=== PATIENT | male | born 1950 | race Caucasian/White ===

== ENCOUNTER → 2016-06-08 | Outpatient (CLI) | payer OTHER, MEDICAID ==
--- NOTE | 2016-06-08 15:36 | REP ---
MAXILLOFACIAL CT WITHOUT CONTRAST: HISTORY: Chronic pansinusitis. COMPARISON: 10/14/2013 A right Alverto cell is present. The patient is status post partial right ethmoidectomy, left middle nasal turbinectomy, uncinectomy and partial septoplasty. Minimal mucosal thickening is present in the ethmoid and left maxillary sinuses. The remaining sinuses are clear. The right ostiomeatal unit is patent. The middle and inferior nasal turbinates are partially paradoxical. There is mild deviation of the nasal septum to the right superiorly and to the left inferiorly. The cribriform plate, medial sommer of the orbits and optic canals are intact. The carotid canals form a segment of the posterolateral sommer of the sphenoid sinus. IMPRESSION: 1. Postoperative change as described above. 2. Sinus mucosal thickening as described above. Signed by Thomas Enrique MD 06/08/2016 03:42 P
== END ==
LOC: M RAD 13:23
PROVIDERS: ATTEND Otolaryngology
DX: J32.4 Chronic pansinusitis (principal)

== ENCOUNTER → 2016-06-28 | Outpatient (REF) | payer OTHER, MEDICAID ==
[2016-06-28 18:27] LABS: MEAN CORPUSCULAR HEMOGLOBIN 31.9 pg (27.0-33.0); MEAN CORPUSCULAR HGB CONC 34.1 g/dl (32.0-36.5); MEAN CORPUSCULAR VOLUME 93.6 fl (80.0-96.0); RED CELL DISTRIBUTION WIDTH 12.2 % (11.5-14.5); WHITE BLOOD COUNT 4.6 K/mm3 (4.0-10.0)
[2016-06-28 18:32] LABS: ALBUMIN 3.9 GM/DL (3.2-5.2); ALBUMIN/GLOBULIN RATIO 1.39 (1.00-1.93); BILIRUBIN,TOTAL 0.6 MG/DL (0.2-1.0); CREATININE FOR GFR 1.31 MG/DL (0.70-1.30); GLOMERULAR FILTRATION RATE 58.8 (>49); POTASSIUM SERUM 4.2 MEQ/L (3.5-5.1); TOTAL PROTEIN 6.7 GM/DL (6.4-8.2)
== END ==
LOC: M SFHCLERA 09:48
PROVIDERS: ATTEND Family Medicine
DX: Z01.818 Encounter for other preprocedural examination (principal)

== ENCOUNTER → 2016-06-28 | Outpatient (CLI) | payer OTHER, MEDICAID ==
--- NOTE | 2016-06-28 18:21 | REP ---
Clinical: Preoperative assessment. Technique: PA and lateral. Comparison: 05/02/2012. Findings: Chronic scoliosis remains stable. Cardiac silhouette is normal. Lung ramriez demonstrate chronic stable changes without acute consolidation, effusion, or pneumothorax. Airway appears patent and midline. Degenerative changes to the right shoulder. Impression: Chronic stable changes. No acute cardiopulmonary process. Signed by Sylvain Perez MD 06/28/2016 06:13 P
== END ==
LOC: M LRY 09:52
PROVIDERS: ATTEND Family Medicine
DX: Z01.818 Encounter for other preprocedural examination (principal)

== ENCOUNTER → 2016-11-28 | Outpatient (REF) | payer OTHER, MEDICAID ==
[2016-11-28 18:31] LABS: ANION GAP 5 MEQ/L (8-16); BLOOD UREA NITROGEN 14 MG/DL (7-18); CALCIUM LEVEL 8.6 MG/DL (8.8-10.2); CARBON DIOXIDE LEVEL 31 MEQ/L (21-32); CHLORIDE LEVEL 105 MEQ/L (98-107); CHOLESTEROL LEVEL 209 MG/DL (<200); GLOMERULAR FILTRATION RATE > 60.0 (>49); GLUCOSE, FASTING 101 MG/DL (80-110); SODIUM LEVEL 141 MEQ/L (136-145); TRIGLYCERIDES LEVEL 99 MG/DL (<150)
[2016-11-28 18:43] LABS: MEAN CORPUSCULAR HEMOGLOBIN 32.6 pg (27.0-33.0); MEAN CORPUSCULAR HGB CONC 33.6 g/dl (32.0-36.5); RED CELL DISTRIBUTION WIDTH 12.4 % (11.5-14.5); WHITE BLOOD COUNT 4.6 K/mm3 (4.0-10.0)
== END ==
LOC: M SFHCLERA 10:40
PROVIDERS: ATTEND Physician Assistant
DX: Z00.00 Encounter for general adult medical examination without abnormal findings (principal); E78.2 Mixed hyperlipidemia

== ENCOUNTER → 2016-12-21 | Outpatient (REF) | payer OTHER, MEDICAID | LOC: M LAB REF 14:34 | PROVIDERS: ATTEND Physician Assistant | DX: L30.9 Dermatitis, unspecified (principal) ==

== ENCOUNTER 2017-03-29 09:10 | Day surgery (SDC) | payer OTHER ==
[~2017-03-29] VITALS: Ht 188 cm; Wt 104.4 kg
[~2017-03-29 09:10] MED LIST: FISH100049 PO; IBUP-1114 PO
[2017-03-29] MEDS ORDERED: LR 1,000 ML IV ONE ×2 (09:30→12:15)
[2017-03-29] MEDS ORDERED: SCOPOLAMINE 1.5 MG TRANSDERMAL As Ordered ONE (10:15)
[2017-03-29] MEDS ORDERED: ONDANSETRON 4MG/2ML VIAL (J2405) As Ordered ONE (10:47)
[2017-03-29] MEDS ORDERED: LIDOCAINE 2% INJ 100 MG/5 ML SDV (FOR ANES.) As Ordered ONE (10:47)
[2017-03-29] MEDS ORDERED: ROCURONIUM BROMIDE 50 MG/5 ML VIAL As Ordered ONE (10:47)
[2017-03-29] MEDS ORDERED: dexameTHASONE 4 MG/ML 1ML VIAL (J1100) As Ordered ONE (10:47)
[2017-03-29] MEDS ORDERED: PROPOFOL 200 MG/20 ML VIAL As Ordered ONE (10:47)
[2017-03-29] MEDS ORDERED: fentaNYL 250 MCG/5 ML INJECTION (J3010) As Ordered ONE (10:48)
[2017-03-29] MEDS ORDERED: MIDAZOLAM INJ 2 MG/2 ML VIAL (J2250) As Ordered ONE (10:48)
[2017-03-29] MEDS ORDERED: LIDOCAINE W/EPINEPHRINE 1% 20ML VIAL As Ordered ONE (11:26)
[2017-03-29] MEDS ORDERED: EPINEPHrine 1MG/ML INJ 30ML MD-VIAL As Ordered ONE (11:26)
[2017-03-29] MEDS ORDERED: METHYLENE BLUE 0.5% (5MG/ML) 10 ML AMP (PROVAYBLUE)(Q9968 PER 1MG) As Ordered ONE (11:27)
[2017-03-29] MEDS ORDERED: ePHEDrine SULFATE 25 MG/5 ML(5MG/ML) SYRINGE As Ordered ONE (11:48)
[2017-03-29] MEDS ORDERED: GLYCOPYRROLATE INJ 0.2 MG/ML 2 ML VIAL As Ordered ONE (11:52)
[2017-03-29] MEDS ORDERED: NEOSTIGMINE 10 MG/10 ML VIAL (J2710) As Ordered ONE (11:52)
[2017-03-29] MEDS ORDERED: ACETAMINOPH W/CODEINE #3 TAB UD PO PRN (12:15)
[2017-03-29] MEDS ORDERED: ONDANSETRON 4MG/2ML VIAL (J2405) IV PRN (13:00)
[2017-03-29] MEDS ORDERED: METOCLOPRAMIDE INJ 10MG/2ML VIAL (J2765) IV PRN (13:00)
[2017-03-29] MEDS ORDERED: LR 1,000 ML IV SCH (13:00)
[2017-03-29] MEDS ORDERED: PERCOCET 5MG/325MG TAB PO PRN (13:00)
[2017-03-29] MEDS ORDERED: HYDROmorphone HCL 1 MG/ML SYRINGE (J1170) IV PRN (13:00)
[2017-03-29 13:36] VITALS: BP 147/96
--- NOTE | 2017-03-29 14:52 | RO ---
DATE OF PROCEDURE: 03/29/2017 PREPROCEDURE DIAGNOSIS: Chronic left maxillary sinusitis. POSTPROCEDURE DIAGNOSIS: Chronic left maxillary sinusitis. PROCEDURE: Left turbinectomy, left enterostomy. SURGEON: Didier Zuniga MD [employer]AIN[employer] SPECIALIST: ANESTHESIA: General. DESCRIPTION OF PROCEDURE: Under general anesthesia with the patient intubated, the patient was prepped and draped in the usual manner. I used pledgets of adrenaline 1:100,000. I infiltrated with Lidocaine and 0.5% Marcaine. The anterior aspect of the left middle turbinate was hypertrophic obstructing the osteomeatal complex area and so I trimmed it with a microdebrider and Thru-Cut forceps. I then opened the maxillary sinus better. Less than 5 mL of estimated blood loss. The patient tolerated the procedure well and was extubated and transferred to the recovery room in stable condition.
== END 2017-03-29 13:46 | disposition home or self-care (01) ==
LOC: M SDC 09:10
PROVIDERS: ATTEND Otolaryngology
DX: J01.01 Acute recurrent maxillary sinusitis (principal); I51.9 Heart disease, unspecified; Z85.46 Personal history of malignant neoplasm of prostate; M19.90 Unspecified osteoarthritis, unspecified site; L40.9 Psoriasis, unspecified; E78.5 Hyperlipidemia, unspecified; R31.9 Hematuria, unspecified; N32.9 Bladder disorder, unspecified; Z92.3 Personal history of irradiation; Z87.891 Personal history of nicotine dependence; Z79.899 Other long term (current) drug therapy

== ENCOUNTER → 2017-04-05 | Outpatient (REF) | payer OTHER, MEDICAID | LOC: M SFHCLERA 14:07 | PROVIDERS: ATTEND Urology | DX: Z85.46 Personal history of malignant neoplasm of prostate (principal) ==

== ENCOUNTER → 2017-04-13 | Outpatient (REF) | payer OTHER | LOC: M SMT 16:53 | DX: Z85.46 Personal history of malignant neoplasm of prostate (principal) | CPT/HCPCS: 81001 ==

== ENCOUNTER → 2018-02-21 | Outpatient (REF) | payer OTHER | LOC: M SFHCLERA 10:20 | DX: D04.39 Carcinoma in situ of skin of other parts of face (principal) | CPT/HCPCS: 88305 ==

== ENCOUNTER → 2018-03-28 | Outpatient (REF) | payer MEDICARE, MEDICAID ==
[2018-03-28 17:26] LABS: CHOLESTEROL LEVEL 203 MG/DL (<200); CHOLESTEROL RISK RATIO 3.561 (<5); HDL CHOLESTEROL 57 MG/DL (>40); LDL CHOLESTEROL 132 MG/DL (<100); NON-HDL-C 146 MG/DL; PROSTATIC SPECIFIC AG MONITOR 0.1 NG/ML (< 4.0); TRIGLYCERIDES LEVEL 68 MG/DL (<150)
[2018-03-28 19:00] LABS: ESTIMATED AVERAGE GLUCOSE 120 MG/DL (60-110); HEMOGLOBIN A1c 5.8 %
== END ==
LOC: M SFHCLERA 12:21
DX: E66.9 Obesity, unspecified (principal); Z68.30 Body mass index [BMI] 30.0-30.9, adult; E78.2 Mixed hyperlipidemia; Z85.46 Personal history of malignant neoplasm of prostate
CPT/HCPCS: 83036

== ENCOUNTER 2018-05-18 07:40 | Day surgery (SDC) | payer MEDICARE ==
[~2018-05-18] VITALS: Ht 185.4 cm; Wt 107.0 kg
[~2018-05-18 07:40] MED LIST changes: +LIDOCAINE 2% INJ 100 MG/5 ML SDV (FOR ANES.) As Ordered ONE; +PROPOFOL 200 MG/20 ML VIAL As Ordered ONE
[2018-05-18] MEDS ORDERED: NS 1,000 ML IV ONE (08:00)
[2018-05-18] MEDS ORDERED: PROPOFOL 200 MG/20 ML VIAL As Ordered ONE (08:49)
--- NOTE | 2018-05-18 09:02 | ROOR ---
Patient Name: Arvind Whiteside Procedure Date: 05/18/2018 8:26 AM Date of : 1950 Age: 67 Room: [facility] Gender: Male Note Status: Finalized Procedure: Colonoscopy Indications: High risk colon cancer surveillance: Personal history of colonic polyps Providers: Robinson BRITO MD Referring MD: VLADISLAV Burden Requesting Provider: Medicines: Monitored Anesthesia Care Complications: No immediate complications. Procedure: Pre-Anesthesia Assessment: - The heart rate, respiratory rate, oxygen saturations, blood pressure, adequacy of pulmonary ventilation, and response to care were monitored throughout the procedure. The Colonoscope was introduced through the anus and advanced to the cecum, identified by appendiceal orifice and ileocecal valve. The colonoscopy was performed without difficulty. The patient tolerated the procedure well. The quality of the bowel preparation was good. Findings: The perianal and digital rectal examinations were normal. Localized mild mucosal changes characterized by altered vascularity were found at the anus and in the distal rectum. Mild sigmoid diverticulosis and small internal hemorrhoids. The exam was otherwise without abnormality on direct and retroflexion views. 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 - Mild sigmoid diverticulosis and small internal hemorrhoids. - The examination was otherwise normal on direct and retroflexion views. - No specimens collected. Recommendation: - Repeat colonoscopy in 10 years for screening purposes. Robinson Brito MD Robinson BRITO MD 05/18/2018 9:02:08 AM This report has been signed electronically. Number of Addenda: 0 Note Initiated On: 05/18/2018 8:26 AM Estimated Blood Loss: Estimated blood loss: none.
[2018-05-18 09:24] VITALS: BP 120/66
== END 2018-05-18 09:26 | disposition home or self-care (01) ==
LOC: M OPP 07:40
PROVIDERS: ATTEND Internal Medicine Gastroenterology
DX: Z12.11 Encounter for screening for malignant neoplasm of colon (principal); Z86.010 Personal history of colon polyps; K62.7 Radiation proctitis; K57.30 Diverticulosis of large intestine without perforation or abscess without bleeding; K64.8 Other hemorrhoids

== ENCOUNTER → 2018-05-24 | Outpatient (REF) | payer MEDICARE ==
[~2018-05-24] MED LIST changes: -LIDOCAINE 2% INJ 100 MG/5 ML SDV (FOR ANES.) As Ordered ONE; -PROPOFOL 200 MG/20 ML VIAL As Ordered ONE
[2018-05-24 18:10] LABS: BLOOD UREA NITROGEN 19 MG/DL (7-18); CALCIUM LEVEL 8.8 MG/DL (8.8-10.2); CARBON DIOXIDE LEVEL 29 MEQ/L (21-32); CHLORIDE LEVEL 104 MEQ/L (98-107); CREATININE FOR GFR 1.03 MG/DL (0.70-1.30); GLOMERULAR FILTRATION RATE > 60.0 (>49); GLUCOSE, FASTING 94 MG/DL (70-100); POTASSIUM SERUM 4.8 MEQ/L (3.5-5.1); SODIUM LEVEL 139 MEQ/L (136-145)
== END ==
LOC: M SFHCLERA 12:29
PROVIDERS: ATTEND Family Medicine
DX: R10.32 Left lower quadrant pain (principal)

== ENCOUNTER → 2018-05-30 | Outpatient (CLI) | payer MEDICAID, MEDICARE ==
[~2018-05-30] MED LIST changes: +GASTROGRAFIN SOLUTION 30ML (Q9963) As Ordered ONE; +ISOVUE-370 76% 100ML VIAL (Q9967) As Ordered ONE
--- NOTE | 2018-05-30 13:52 | REP ---
CT of the pelvis with IV and oral contrast: The patient has a history of left inguinal repair and 2013 with mesh placement. He now complains of worsening left inguinal pain radiating to the left testicle and to the back on the left for 3-6 months, worse with sitting. Additionally, the patient has a history of prostate carcinoma and prostatectomy. Comparison is a CT of the abdomen and pelvis dated 08/12/2013. There are surgical clips in the left inguinal area, unchanged. The surgical mesh is not visible by CT. There is no evidence of recurrent left inguinal hernia. There is no right inguinal hernia. There are occasional normal size inguinal nodes bilaterally. There are no masses or fluid collections in the inguinal areas. The appendix and terminal ileum are unremarkable. There is no adenopathy or ascites. The bladder wall is diffusely mildly thickened. The bladder is otherwise unremarkable. The pelvic bowel loops are unremarkable. Impression: No recurrent hernia. No inguinal mass, fluid collection or adenopathy. Surgical clips are identified in the left inguinal area. The surgical mesh is not visible by CT. Diffuse mild bladder wall thickening, nonspecific, cystitis versus detrusor hypertrophy. Otherwise, negative CT of the pelvis. Electronically Signed by Earnest Richard MD 05/30/2018 01:44 P
== END ==
LOC: M RAD 10:38
PROVIDERS: ATTEND Family Medicine
DX: R93.41 Abnormal radiologic findings on diagnostic imaging of renal pelvis, ureter, or bladder (principal); Z90.79 Acquired absence of other genital organ(s); Z85.46 Personal history of malignant neoplasm of prostate
CPT/HCPCS: 72193; Q9963; Q9967

== ENCOUNTER → 2018-08-23 | Outpatient (REF) | payer MEDICARE, MEDICAID ==
[~2018-08-23] MED LIST changes: -GASTROGRAFIN SOLUTION 30ML (Q9963) As Ordered ONE; -ISOVUE-370 76% 100ML VIAL (Q9967) As Ordered ONE
== END ==
LOC: M SFHCPLAZ 17:35
PROVIDERS: ATTEND Dermatology
DX: L57.0 Actinic keratosis (principal); L57.8 Other skin changes due to chronic exposure to nonionizing radiation; D36.10 Benign neoplasm of peripheral nerves and autonomic nervous system, unspecified

== ENCOUNTER → 2018-10-16 | Outpatient (REF) | payer MEDICARE | LOC: M LABSMT 13:28 | PROVIDERS: ATTEND Urology | DX: Z85.46 Personal history of malignant neoplasm of prostate (principal) ==

== ENCOUNTER → 2019-01-24 | Outpatient (REF) | payer MEDICARE | LOC: M LABSMT 16:05 | PROVIDERS: ATTEND Urology | DX: Z85.46 Personal history of malignant neoplasm of prostate (principal) ==

== ENCOUNTER → 2019-04-23 | Outpatient (REF) | payer MEDICARE | LOC: M SFHCLERA 14:39 | PROVIDERS: ATTEND Urology | DX: Z85.46 Personal history of malignant neoplasm of prostate (principal) ==

== ENCOUNTER → 2019-08-05 | Outpatient (REF) | payer MEDICARE | LOC: M SFHCLERA 13:25 | PROVIDERS: ATTEND Urology | DX: C61 Malignant neoplasm of prostate (principal) ==

== ENCOUNTER → 2019-10-25 | Outpatient (REF) | payer MEDICARE | LOC: M SFHCLERA 14:48 | PROVIDERS: ATTEND Urology | DX: R97.21 Rising PSA following treatment for malignant neoplasm of prostate (principal) ==

== ENCOUNTER → 2020-02-01 | Outpatient (CLI) | payer MEDICARE | LOC: M WUC 14:38 | PROVIDERS: ATTEND Urology | DX: R97.21 Rising PSA following treatment for malignant neoplasm of prostate (principal); C61 Malignant neoplasm of prostate ==

== ENCOUNTER → 2020-04-27 | Outpatient (CLI) | payer MEDICARE | LOC: M WUC 15:37 | PROVIDERS: ATTEND Urology | DX: Z85.46 Personal history of malignant neoplasm of prostate (principal) ==

== ENCOUNTER → 2020-07-28 | Outpatient (CLI) | payer MEDICARE ==
[2020-07-28 16:48] LABS: BASO % 0.5 % (0.0-1.0); EOS # 0.1 10^3/uL (0.0-0.5); EOS % 0.9 % (0.0-3.0); HEMOGLOBIN 13.3 g/dl (13.5-17.5); LYMPH # 1.1 10^3/uL (1.5-5.0); LYMPH % 19.9 % (24.0-44.0); MEAN CORPUSCULAR HEMOGLOBIN 30.7 pg (27.0-33.0); MEAN CORPUSCULAR HGB CONC 33.3 g/dl (32.0-36.5); MEAN CORPUSCULAR VOLUME 92.4 fl (80.0-96.0); MONO # 0.6 10^3/uL (0.0-0.8); MONO % 10.9 % (2.0-8.0); NEUTROPHILS # 3.8 10^3/uL (1.5-8.5); NEUTROPHILS % 67.4 % (36.0-66.0); PLATELET COUNT, AUTOMATED 218 10^3/uL (150-450); RED BLOOD COUNT 4.33 10^6/uL (4.30-6.10); WHITE BLOOD COUNT 5.6 10^3/uL (4.0-10.0)
[2020-07-28 17:22] LABS: ALBUMIN 3.8 GM/DL (3.2-5.2); ALT/SGPT 40 U/L (12-78); BILIRUBIN,TOTAL 0.6 MG/DL (0.2-1.0); BLOOD UREA NITROGEN 17 MG/DL (7-18); CALCIUM LEVEL 9.1 MG/DL (8.8-10.2); CARBON DIOXIDE LEVEL 29 MEQ/L (21-32); CHLORIDE LEVEL 103 MEQ/L (98-107); CREATININE FOR GFR 0.99 MG/DL (0.70-1.30); GLOMERULAR FILTRATION RATE > 60.0 (>49); GLUCOSE, FASTING 150 MG/DL (70-100); LIPASE 92 U/L (73-393); POTASSIUM SERUM 3.9 MEQ/L (3.5-5.1); SODIUM LEVEL 136 MEQ/L (136-145); TOTAL PROTEIN 6.8 GM/DL (6.4-8.2)
[2020-07-28 18:07] LABS: ERYTHROCYTE SEDIMENTATION RATE 6 mm/hr (0-20)
== END ==
LOC: M WUC 14:52
PROVIDERS: ATTEND Family Medicine
DX: R10.32 Left lower quadrant pain (principal); Z79.899 Other long term (current) drug therapy

== ENCOUNTER → 2020-11-03 | Outpatient (CLI) | payer MEDICARE | LOC: M WUC 14:35 | PROVIDERS: ATTEND Urology | DX: Z85.46 Personal history of malignant neoplasm of prostate (principal) ==

== ENCOUNTER → 2021-04-30 | Outpatient (REF) | payer MEDICARE | LOC: M WUC 15:29 | PROVIDERS: ATTEND Urology | DX: Z85.46 Personal history of malignant neoplasm of prostate (principal) ==

== ENCOUNTER → 2021-08-02 | Outpatient (CLI) | payer MEDICARE | LOC: M WUC 15:24 | PROVIDERS: ATTEND Urology | DX: Z85.46 Personal history of malignant neoplasm of prostate (principal) ==

== ENCOUNTER → 2021-11-01 | Outpatient (CLI) | payer MEDICARE | LOC: M WUC 15:21 | PROVIDERS: ATTEND Urology | DX: Z85.46 Personal history of malignant neoplasm of prostate (principal); R97.8 Other abnormal tumor markers ==

== ENCOUNTER → 2022-01-28 | Outpatient (CLI) | payer MEDICARE | LOC: M WUC 15:05 | PROVIDERS: ATTEND Urology | DX: C61 Malignant neoplasm of prostate (principal) ==

== ENCOUNTER → 2022-02-28 | Outpatient (CLI) | payer MEDICARE ==
[~2022-02-28] MED LIST changes: +ACET32TAB PO; +CEPH500C PO; +HYDR-3713 PO
[2022-02-28 15:50] LABS: HEMATOCRIT 44.3 % (42.0-52.0); HEMOGLOBIN 14.6 g/dl (13.5-17.5); MEAN CORPUSCULAR HEMOGLOBIN 30.8 pg (27.0-33.0); MEAN CORPUSCULAR VOLUME 93.5 fl (80.0-96.0); PLATELET COUNT, AUTOMATED 194 10^3/uL (150-450); RED BLOOD COUNT 4.74 10^6/uL (4.30-6.10); WHITE BLOOD COUNT 6.1 10^3/uL (4.0-10.0)
[2022-02-28 16:02] LABS: INR 0.99; PROTHROMBIN TIME 13.3 SECONDS (12.5-14.5)
[2022-02-28 16:13] LABS: ALKALINE PHOSPHATASE 59 U/L (45-117); ALT/SGPT 33 U/L (12-78); AST/SGOT 22 U/L (7-37); BILIRUBIN,TOTAL 0.7 MG/DL (0.2-1.0); BLOOD UREA NITROGEN 20 MG/DL (7-18); CALCIUM LEVEL 9.1 MG/DL (8.8-10.2); CARBON DIOXIDE LEVEL 28 MEQ/L (21-32); CHLORIDE LEVEL 104 MEQ/L (98-107); CREATININE FOR GFR 0.96 MG/DL (0.70-1.30); GLOMERULAR FILTRATION RATE > 60.0 (>49); GLUCOSE, FASTING 92 MG/DL (70-100); POTASSIUM SERUM 4.5 MEQ/L (3.5-5.1); SODIUM LEVEL 138 MEQ/L (136-145); TOTAL PROTEIN 7.1 GM/DL (6.4-8.2)
== END ==
LOC: M PLAIMG 11:49
PROVIDERS: ATTEND Urology
DX: N52.31 Erectile dysfunction following radical prostatectomy (principal)

== ENCOUNTER → 2022-03-19 | Outpatient (CLI) | payer MEDICARE ==
[~2022-03-19] MED LIST changes: -CEPH500C PO; -HYDR-3713 PO
[2022-03-19 15:55] LABS: APPEARANCE, URINE MANUAL CLEAR (CLEAR); COLOR, URINE MANUAL YELLOW (YELLOW)
[2022-03-19 15:56] LABS: PH,URINE MAN 6.5 UNITS (5.0 - 7.0)
[2022-03-19 16:01] LABS: BILIRUBIN, URINE MANUAL NEGATIVE (NEGATIVE); BLOOD URINE MANUAL NEGATIVE (NEGATIVE); GLUCOSE, URINE (UA) MANUAL NEGATIVE (NEGATIVE); KETONE, URINE MANUAL NEGATIVE (NEGATIVE); LEUKOCYTE ESTERASE, URINE MAN NEGATIVE (NEGATIVE); NITRITE, URINE MANUAL NEGATIVE (NEGATIVE); PROTEIN, URINE MANUAL NEGATIVE (NEGATIVE); UROBILINOGEN, URINE MANUAL NORMAL (NORMAL)
== END ==
LOC: M LAB 15:33
PROVIDERS: ATTEND Urology
DX: N52.31 Erectile dysfunction following radical prostatectomy (principal); Z79.899 Other long term (current) drug therapy

== ENCOUNTER → 2022-03-23 | Outpatient (CLI) | payer MEDICARE | LOC: M LABSMTC 10:50 | PROVIDERS: ATTEND Anesthesiology | DX: Z01.812 Encounter for preprocedural laboratory examination (principal); Z11.52 Encounter for screening for COVID-19 ==

== ENCOUNTER 2022-03-28 06:21 | Day surgery (SDC) | payer MEDICARE ==
[~2022-03-28] VITALS: Ht 188 cm; Wt 111.1 kg
[~2022-03-28 06:21] MED LIST changes: +GENTAMICIN 100 MG in IV 1 EA IV ONE
[2022-03-28] MEDS ORDERED: LR 1,000 ML IV SCH ×2 (06:45→10:15)
[2022-03-28] MEDS ORDERED: fentaNYL 100 MCG/2 ML INJECTION As Ordered ONE ×2 (07:16→08:28)
[2022-03-28] MEDS ORDERED: MIDAZOLAM INJ 2MG/2ML VIAL (J2250 PER 1MG) As Ordered ONE (07:16)
[2022-03-28] MEDS ORDERED: propofoL 200 MG/20 ML VIAL As Ordered ONE (07:16)
[2022-03-28] MEDS ORDERED: ceFAZolin 1GM VIAL As Ordered ONE (07:16)
[2022-03-28] MEDS ORDERED: LIDOCAINE 2% 100MG/5ML SDV (FOR ANES.) As Ordered ONE (07:16)
[2022-03-28] MEDS ORDERED: VANCOMYCIN HCL 750 MG, VIAL MATE ADAPTER 1 EACH in D5W 250 ML IV ONE ×2 (07:30→08:30)
[2022-03-28] MEDS ORDERED: KETOROLAC 60MG 2ML VIAL As Ordered ONE (08:07)
[2022-03-28] MEDS ORDERED: ONDANSETRON 4MG 2ML VIAL As Ordered ONE (08:07)
[2022-03-28] MEDS ORDERED: ACETAMINOPHEN 1000MG 100ML IV BAG As Ordered ONE (08:07)
[2022-03-28] MEDS ORDERED: ESMOLOL INJ 100MG/10ML VIAL As Ordered ONE (09:03)
[2022-03-28] MEDS ORDERED: LABETALOL 100MG/20ML VIAL As Ordered ONE (09:03)
[2022-03-28] MEDS ORDERED: fentaNYL 100 MCG/2 ML INJECTION IV PRN (10:15)
[2022-03-28] MEDS ORDERED: oxyCODONE 5MG TAB PO PRN (10:15)
[2022-03-28] MEDS ORDERED: ONDANSETRON 4MG 2ML VIAL IV PRN (10:15)
[2022-03-28] MEDS ORDERED: HYDROMORPHONE HCL 0.5 MG/ 0.5 ML SYRINGE (J1170 PER 1) IV PRN (10:15)
[2022-03-28] MEDS ORDERED: CEPH500C PO (10:27)
[2022-03-28] MEDS ORDERED: HYDR-3713 PO (10:27)
[2022-03-28 11:04] VITALS: BP 118/69
== END 2022-03-28 12:23 | disposition home or self-care (01) ==
LOC: M SDC 06:21
PROVIDERS: ATTEND Urology
DX: N52.9 Male erectile dysfunction, unspecified (principal); Z85.46 Personal history of malignant neoplasm of prostate; Z92.3 Personal history of irradiation; Z87.891 Personal history of nicotine dependence; F12.10 Cannabis abuse, uncomplicated; J45.909 Unspecified asthma, uncomplicated; Z79.899 Other long term (current) drug therapy; F41.9 Anxiety disorder, unspecified; E78.5 Hyperlipidemia, unspecified
CPT/HCPCS: 54405; C1813; J0131; J0690; J1100; J1580; J1885; J2250; J2405; J3010; J3370

== ENCOUNTER → 2022-05-06 | Outpatient (REF) | payer MEDICARE ==
[~2022-05-06] MED LIST changes: +CEPH500C PO; -GENTAMICIN 100 MG in IV 1 EA IV ONE; +HYDR-3713 PO
== END ==
LOC: M LABWUC 16:14
PROVIDERS: ATTEND Urology
DX: C61 Malignant neoplasm of prostate (principal)

== ENCOUNTER → 2022-10-17 | Outpatient (CLI) | payer MEDICARE | LOC: M LAB 14:49 | PROVIDERS: ATTEND Urology | DX: Z85.46 Personal history of malignant neoplasm of prostate (principal) ==

== ENCOUNTER → 2023-04-24 | Outpatient (REF) | payer MEDICARE | LOC: M LABWUC 16:06 | PROVIDERS: ATTEND Urology | DX: Z85.46 Personal history of malignant neoplasm of prostate (principal) ==

== ENCOUNTER → 2023-10-24 | Outpatient (REF) | payer MEDICARE, MEDICAID | LOC: M LAB REF 20:25 | PROVIDERS: ATTEND Urology | DX: C61 Malignant neoplasm of prostate (principal) ==

== ENCOUNTER → 2023-11-10 | Outpatient (REF) | payer MEDICARE, MEDICAID ==
[2023-11-10 18:28] LABS: APPEARANCE, URINE CLEAR (CLEAR); BACTERIA, URINE AUTO NEGATIVE (NEGATIVE); BILIRUBIN, URINE AUTO NEGATIVE (NEGATIVE); BLOOD, URINE BLOOD NEGATIVE (NEGATIVE); COLOR, URINE YELLOW (YELLOW); GLUCOSE, URINE (UA) AUTO NEGATIVE (NEGATIVE); KETONE, URINE AUTO NEGATIVE (NEGATIVE); LEUKOCYTE ESTERASE, URINE AUTO NEGATIVE (NEGATIVE); NITRITE, URINE AUTO NEGATIVE (NEGATIVE); PROTEIN, URINE AUTO NEGATIVE (NEGATIVE); RBC, URINE AUTO 0 /HPF (0-3); SPECIFIC GRAVITY URINE AUTO 1.009 (1.002-1.035); SQUAMOUS EPITHELIAL CELL UR AU 0 /HPF (0-6); UROBILINOGEN, URINE AUTO 0.2 mg/dL (0.0-2.0); WBC, URINE AUTO 0 /HPF (0-3)
== END ==
LOC: M SMT 17:02
PROVIDERS: ATTEND Urology
DX: Z85.46 Personal history of malignant neoplasm of prostate (principal)

== ENCOUNTER → 2024-04-13 | Outpatient (CLI) | payer MEDICARE, MEDICAID | LOC: M LAB 14:45 | PROVIDERS: ATTEND Urology | DX: R31.0 Gross hematuria (principal) ==

== ENCOUNTER → 2024-10-30 | Outpatient (CLI) | payer MEDICARE, MEDICAID ==
[2024-10-30 15:02] LABS: PLATELET COUNT, AUTOMATED 208 10^3/uL (150-450)
[2024-10-30 15:09] LABS: ALT/SGPT 20.0 U/L (7.0-40); AST/SGOT 26.0 U/L (<34); CALCIUM LEVEL 9.5 MG/DL (8.3-10.6); CARBON DIOXIDE LEVEL 28.0 MMOL/L (20-31); CHLORIDE LEVEL 102.0 MMOL/L (98-107); CHOLESTEROL LEVEL 246.0 MG/DL (<200); CHOLESTEROL RISK RATIO 4.49 (<5); CREATININE FOR GFR 1.04 MG/DL (0.70-1.30); GLOMERULAR FILTRATION RATE 76.3 (>42); LDL CHOLESTEROL 169.7 MG/DL (<100); NON-HDL-C 191.3 MG/DL; POTASSIUM SERUM 4.6 MMOL/L (3.5-5.1); SODIUM LEVEL 141.0 MMOL/L (136-145); TRIGLYCERIDES LEVEL 108.0 MG/DL (<150)
[2024-10-30 15:10] LABS: TOTAL 25(OH) VITAMIN D 80.5 NG/ML (20.0-100.0)
[2024-10-30 15:16] LABS: ESTIMATED AVERAGE GLUCOSE 108.0 MG/DL (60-110)
== END ==
LOC: M WUC 11:33
DX: Z00.00 Encounter for general adult medical examination without abnormal findings (principal); Z79.1 Long term (current) use of non-steroidal anti-inflammatories (NSAID); Z79.899 Other long term (current) drug therapy; Z80.8 Family history of malignant neoplasm of other organs or systems; Z82.49 Family history of ischemic heart disease and other diseases of the circulatory system; Z87.891 Personal history of nicotine dependence